=== PATIENT | male | born 1980 | race Caucasian/White ===

== ENCOUNTER 2019-09-07 05:24 | Day surgery (SDC) | payer OTHER ==
[~2019-09-07 05:24] MED LIST: CRESTOR5 MG PO; WELLBUTRIN SR100 MG PO
[2019-09-07] MEDS ORDERED: PERCOCET 5-3251 EACH PO (12:03)
[2019-09-07] MEDS ORDERED: KETO10TA2 PO (12:04)
[2019-09-07] MEDS ORDERED: RECTICARE30 GM TOP (12:04)
== END 2019-09-07 14:30 | disposition home or self-care (01) ==
LOC: CIR.AMB 05:24
DX: K60.1 Chronic anal fissure (principal); K64.8 Other hemorrhoids